=== PATIENT | female | born 1965 | race Caucasian/White ===

== ENCOUNTER 2017-10-11 20:29 | Emergency (ER) | payer OTHER ==
[~2017-10-11] VITALS: Ht 160 cm; Wt 63.3 kg
[~2017-10-11 20:29] MED LIST: AMOX875T PO; FLUO40CA8 PO; GUAISYP4 PO
[2017-10-11 20:32] VITALS: TEMP 36.8; Ht 160 cm; Wt 63.3 kg
[2017-10-11] MEDS ORDERED: ACETAMINOPHEN 500 MG TAB PO STA (20:49)
[2017-10-11] MEDS ORDERED: PROCHLORPERAZINE 5 MG/ML 2 ML VIAL IV STA (20:49)
[2017-10-11] MEDS ORDERED: SODIUM CHLORIDE 0.9% 1000ML 1,000 ML IV STA (20:49)
[2017-10-11] MEDS ORDERED: DiphenhydrAMINE HCL 50 MG/ML VIAL IV STA (20:49)
[2017-10-11] MEDS ORDERED: BUTALBITAL/ACETAMIN/CAFFEINE TAB PO STA (20:51)
--- NOTE | 2017-10-11 20:55 | EMERGENCY ROOM VISIT NOTE ---
History Report prepared by Ankita: Radha Sotelo Under the Supervision of: Dr. Rogerio Rojas M.D. First contact with patient: 20:38 Chief Complaint: FLU LIKE SX Stated Complaint: FLU LIKE SYMPTOMS, HEADACHE, BACKACHE, UTI? History of Present Illness The patient is a 51 year old white female with a past medical history of depression, salpingo-oophorectomy who presents to the ED with a cc of constant headache beginning earlier today. She describes the headache as aching and throbbing. She took CBD chews to some relief. Positive urinary symptoms, body aches, chills, low back pain. She admits to occasional alcohol use. Source of History: patient Onset: earlier today Position: head Quality: ache, other (throbbing) Timing: constant Modifying Factors (Relieving): other (CBD chews) Associated Symptoms: + chills, + back pain, + urinary symptoms Review of Systems See HPI for pertinent positives and negatives. A total of ten systems were reviewed and were otherwise negative. Past Medical & Surgical Medical Problems: (1) Depression Surgical Problems: (1) History of salpingo-oophorectomy Family History Heart disease Social History Smoking Status: Never Smoker Alcohol Use: occasionally Drug Use: none Marital Status: Housing Status: lives with family Current/Historical Medications Scheduled Amoxicillin & Pot Clavulanate (Augmentin 875-125 mg), 1 TAB PO BID Bupropion HCl (Bupropion HCl Xl), 300 MG PO QAM Cephalexin (Keflex), 1 CAP PO BID Scheduled PRN Ondansetron Hcl (Zofran), 4 MG PO Q8H PRN for Nausea Allergies Coded Allergies: Erythromycin (Verified Allergy, Intermediate, rash,vomiting, 08/20/15) Macrolides (Unverified Allergy, Unknown, 08/20/15) Sulfa Drugs (Verified Allergy, Unknown, 08/20/15) Physical Exam Vital Signs Date Time Temp Pulse Resp B/P (MAP) Pulse Ox O2 Delivery O2 Flow Rate FiO2 10/11/17 22:19 93 18 117/84 99 Room Air 10/11/17 20:32 36.8 70 20 119/76 97 Room Air Physical Exam GENERAL: Awake, alert, well-appearing, NAD HENT: Normocephalic, atraumatic. EYES: Normal conjunctiva. Sclera non-icteric. PERRL. No anisocoria. NECK: Supple. No nuchal rigidity. FROM. RESPIRATORY: CTAB, no rhonchi, wheezing, crackles CARDIAC: RRR, no MRG ABDOMEN: Soft, NTND, BS+ MSK: No chest wall TTP, no LE edema, no CVA TTP. NEURO: CN 2-12 intact, 5/5 upper and lower extremity strength, no dysmetria, no drift, good finger to nose, no sensory deficits. Finger count grossly normal. SKIN: No rash or jaundice noted. Medical Decision & Procedures Laboratory Results Test 10/11/17 21:00 Urine Color DK YELLOW Urine Appearance CLEAR (CLEAR) Urine pH 5.5 (4.5-7.5) Urine Specific [place] 1.027 (1.000-1.030) Urine Protein NEG (NEG) Urine Glucose (UA) NEG (NEG) Urine Ketones 1+ (NEG) Urine Occult Blood TRACE (NEG) Urine Nitrite NEG (NEG) Urine Bilirubin NEG (NEG) Urine Urobilinogen NEG (NEG) Urine Leukocyte Esterase MODERATE (NEG) Urine WBC (Auto) >30 /hpf (0-5) Urine RBC (Auto) 10-30 /hpf (0-4) Urine Hyaline Casts (Auto) 10-30 /lpf (0-5) Urine Epithelial Cells (Auto) >30 /lpf (0-5) Urine Bacteria (Auto) NEG (NEG) Urine Test NEG (NEG) Influenza Type A Antigen Neg for Influ A (NEG) Influenza Type B Antigen Neg for Influ B (NEG) Laboratory results reviewed by me Medications Administered Medications (Trade) Dose Ordered Sig/Danie Route Start Time Stop Time Status Last Admin Dose Admin Prochlorperazine Edisylate (Compazine Inj) 10 mg NOW STAT IV 10/11/17 20:49 10/11/17 20:51 DC 10/11/17 21:02 10 MG Sodium Chloride 1,000 ml @ 999 mls/hr Q1H1M STAT IV 10/11/17 20:49 10/11/17 21:49 DC 10/11/17 21:01 999 MLS/HR Acetaminophen (Tylenol Tab) 1,000 mg NOW STAT PO 10/11/17 20:49 10/11/17 20:51 DC 10/11/17 21:02 1,000 MG Diphenhydramine HCl (Benadryl Inj) 50 mg NOW STAT IV 10/11/17 20:49 10/11/17 20:51 DC 10/11/17 21:01 50 MG Acetaminophen/ Butalbital/ Caffeine (Fioricet Tab) 1 tab NOW STAT PO 10/11/17 20:51 10/11/17 20:52 DC 10/11/17 21:03 1 TAB Cephalexin Monohydrate (Keflex Cap) 500 mg NOW ONCE PO 10/11/17 21:45 10/11/17 21:46 DC 10/11/17 21:37 500 MG ED Course 2040: The patient was evaluated in room A3. A complete history and physical exam was performed. 2144: I reevaluated the patient. Discussed results and discharge instructions: She verbalized understanding and agreement. The patient is ready for discharge. Medical Decision Nursing notes reviewed. Ancillary studies and prior records reviewed. The patient is a 51 year old white female with a past medical history of depression, salpingo-oophorectomy who presents to the ED with a cc of constant headache beginning earlier today. Differential diagnosis: Etiologies such as UTI, migraine headache, meningitis, sinusitis, CO exposure, ICH, SAH, infection, tumor, headache, sinus thrombosis, arterial dissection, as well as others were entertained. Patient was seen and evaluated the bedside. Patient had complained of some urinary symptoms and then had complained of some viral flu type symptoms today. Patient had noted that she had taken some Augmentin 2 times that today she felt worse. Patient was counseled on antibiotic use and that she should probably be tested before just empirically taking medications. Patient stated that she does not have a history of migraines. Patient does not take any blood thinning medications and denies any recent strenuous activity or heavy lifting. The patient noted that she did have a spin class yesterday but stated that she thought she was likely dehydrated. Patient otherwise has a nonfocal neurologic exam. No signs of meningismus. We did discuss that possibly obtaining a CT scan given the atypical nature of her headache. The patient is agreeable to try medical management and checking for things like flu and urinalysis prior to obtaining a CT scan. Patient did have urinalysis completed along with a flu swab. Patient was also given an IV and given IV fluids as well as medications to help for symptom control. Patient had negative flu. Urinalysis is questionable for infection. Patient was treated with Keflex. Upon reassessment the patient's headache had resolved. Given this and the likely UTI no CT was obtained at this time. Patient told return if she any worsening symptoms. Patient was told to continue the antibiotics as well as things like a probiotic and/or yogurt and to make sure it should be taken with food. Again the patient has no signs of meningismus and no trauma and a nonfocal neurologic exam but do not believe that she requires a CT scan given that she is currently asymptomatic. Patient was given strict follow-up, discharge, and return precautions. All questions were answered. Patient was deemed suitable for outpatient follow-up at this time. Patient agreed with the plan of care and was safely discharged home. Medication Reconcilliation Current Medication List: was personally reviewed by me Blood Pressure Screening Patient's blood pressure: Normal blood pressure Blood pressure disposition: Did not require urgent referral Impression Primary Impression: UTI (urinary tract infection) Additional Impression: Headache Scribe Attestation The scribe's documentation has been prepared under my direction and personally reviewed by me in its entirety. I confirm that the note above accurately reflects all work, treatment, procedures, and medical decision making performed by me. Departure Information Dispostion Home / Self-Care Prescriptions Ondansetron Hcl (ZOFRAN) 4 Mg Tab 4 MG PO Q8H Y for Nausea, #12 TAB Prov: Rogerio Rojas M.D. 10/11/17 Cephalexin (KEFLEX) 500 Mg Cap 1 CAP PO BID for 7 Days, #13 CAP Prov: Rogerio Rojas M.D. 10/11/17 Referrals No Doctor, Assigned (PCP) Patient Instructions ED UTI Cystitis Female, Headache Pain, [facility] Additional Instructions Please return to the emergency department if you have worsening or recurrent symptoms not amenable to at-home treatment. Please call for a follow-up appointment with her primary care physician. Please take your medications as prescribed. If you have other concerns and/or complaints please feel free to also call your primary care physician's office or return the ED for further evaluation, management, and treatment. You may take 800 mg Ibuprofen every 6 hours as needed for pain/fever with food unless told by your physician not to take NSAIDs. You may take tylenol 1000 mg every 6 hours as needed for pain/fever unless told by your physician to not take it or have liver problems. You may take motrin and tylenol separately or at the same time. Take your medications as prescribed. If taking an antibiotic consider taking a probiotic and/or eating yogurt, but at the least, please take with food as it can cause upset stomach. You have been examined and treated today on an emergency basis only. This is not a substitute for, or an effort to provide, complete comprehensive medical care. It is impossible to recognize and treat all injuries or illnesses in a single emergency department visit. It is therefore important that you follow up closely with [facility], your PCP, and/or your specialist(s). Call as soon as possible for an appointment. Thank you for your time and consideration. I look forward to speaking with you again soon. Please don't hesitate to call us if you have any questions. Problem Qualifiers Primary Impression: UTI (urinary tract infection) Urinary tract infection type: acute cystitis Hematuria presence: with hematuria Qualified Codes: N30.01 - Acute cystitis with hematuria Additional Impression: Headache Headache type: unspecified Headache chronicity pattern: acute headache Intractability: not intractable Qualified Codes: R51 - Headache
[2017-10-11 21:43] LABS: INFLUENZA B ANTIGEN Neg for Influ B (NEG)
[2017-10-11] MEDS ORDERED: CEPHALEXIN MONOHYDRATE 250 MG CAP PO ONE (21:45)
[2017-10-11] MEDS ORDERED: CEPH-571 PO (21:49)
[2017-10-11] MEDS ORDERED: ONDA4TAB46 PO (21:49)
[2017-10-11] MEDS ORDERED: WLLXL300 PO (21:54)
[2017-10-11 22:19] VITALS: BP 117/84; PULSE 93; O2SAT 99
== END 2017-10-11 22:22 | disposition home or self-care (01) ==
LOC: C.EDB 20:30 → C.EDA 22:22
DX: R51 Headache (principal); N39.0 Urinary tract infection, site not specified; F32.9 Major depressive disorder, single episode, unspecified; Z90.79 Acquired absence of other genital organ(s); Z90.722 Acquired absence of ovaries, bilateral; Z88.2 Allergy status to sulfonamides; Z88.1 Allergy status to other antibiotic agents